=== PATIENT | female | born 1975 | race American Indian/Alaskan Native ===

== ENCOUNTER 2016-11-13 08:55 | Emergency (ER) | payer BC ==
[2016-11-13 09:28] VITALS: BP 136/97
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
== END 2016-11-13 13:00 | disposition home or self-care (01) ==
LOC: EEVIPCON 08:55 → ED 08:55
DX: T62.94XA Toxic effect of unspecified noxious substance eaten as food, undetermined, initial encounter (principal); I10 Essential (primary) hypertension; Y92.89 Other specified places as the place of occurrence of the external cause
CPT/HCPCS: 99282

== ENCOUNTER 2017-03-11 15:00 | Emergency (ER) | payer BC ==
[2017-03-11 15:20] VITALS: BP 155/84
== END 2017-03-11 18:27 | disposition home or self-care (01) ==
LOC: ED 15:00
DX: J03.90 Acute tonsillitis, unspecified (principal); J02.9 Acute pharyngitis, unspecified; I10 Essential (primary) hypertension
CPT/HCPCS: 99282

== ENCOUNTER 2017-06-23 14:00 | Outpatient (CLI) | payer BC ==
--- NOTE | 2017-06-23 15:02 | Mammography Report ---
The patient had this exam on the date indicated above. It was indicated to us that previous films should be available that would be helpful in providing optimal evaluation with regards to the current study. A final report will be issued, pending receipt of the prior study. CAD was utilized.
== END 2017-06-23 14:01 | disposition home or self-care (01) ==
LOC: MAMMO 14:00
PROVIDERS: ATTEND Hospitalist
DX: Z12.31 Encounter for screening mammogram for malignant neoplasm of breast (principal); I10 Essential (primary) hypertension
CPT/HCPCS: 77067; G0202

== ENCOUNTER 2017-07-20 07:11 | Emergency (ER) | payer BC ==
[2017-07-20 07:47] VITALS: BP 153/94
[2017-07-20] MEDS ORDERED: BOOSTRIX IM ONE (08:14)
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
[2017-07-20] MEDS ORDERED: POLYSPORIN TP ONE (08:30)
== END 2017-07-20 09:12 | disposition home or self-care (01) ==
LOC: ED 07:11
DX: S61.215A Laceration without foreign body of left ring finger without damage to nail, initial encounter (principal); I10 Essential (primary) hypertension; W26.8XXA Contact with other sharp object(s), not elsewhere classified, initial encounter; Y93.89 Activity, other specified; Y92.89 Other specified places as the place of occurrence of the external cause; Y99.8 Other external cause status
CPT/HCPCS: 90471; 90715

== ENCOUNTER 2017-10-26 13:52 | Outpatient (CLI) | payer BC ==
--- NOTE | 2017-10-26 16:23 | Mammography Report ---
LEFT DIGITAL DIAGNOSTIC MAMMOGRAM and LEFT BREAST ULTRASOUND: 10/26/17 13:52:00 CLINICAL: Recalled for asymmetry. COMPARISON:06/23/17 screening FINDINGS: ML and spot compression CC views were performed and demonstrate partial effacement of asymmetry and architectural distortion in the inner breast. The lateral view is negative. Ultrasound of the left breast (including all four quadrants and the retroareolar area) was performed and demonstrated no mass or shadowing to correlate with the mammographic finding. A cyst at 1 o'clock 8 cm from the nipple measures 7 x 2 x 8 mm. A complex cyst at 3 o'clock 8 cm from the nipple measures 13 x 4 x 11 mm. Skin thickening and a tiny sebaceous cyst at 4 o'clock 5 cm from the nipple measuring 4 x 5 x 12 mm. IMPRESSION: Probably benign asymmetry architectural distortion in the inner left breast with no ultrasound correlate and no corresponding finding on lateral or MLO views. A 12 mm benign sebaceous cyst at 6 o'clock 7 cm from the nipple. BI-RADS CATEGORY: 3 - - Probably Benign RECOMMENDATION: Six month followup left mammogram and left breast ultrasound is needed. ACR BI-RADS MAMMOGRAPHIC CODES: 0 = Needs additional imaging evaluation; 1 = Negative; 2 = Benign; 3 = Probably benign; 4 = Suspicious; 5 = Malignant; 6 = Known biopsy-proven malignancy COMMENT: 1. Dense breast tissue, i.e., adenosis, fibrocystic changes, etc., may obscure an underlying neoplasm. 2. Approximately 10% of cancers are not detected with mammography. 3. A negative mammography report should not delay biopsy if a clinically suspicious mass is present. COMMENT: Patient follow-up letters are generated via our [employer] application.
== END 2017-10-26 13:53 | disposition home or self-care (01) ==
LOC: MAMMO 13:52
PROVIDERS: ATTEND Hospitalist
DX: N60.82 Other benign mammary dysplasias of left breast (principal); I10 Essential (primary) hypertension

== ENCOUNTER 2018-02-02 13:17 | Outpatient (CLI) | payer BC ==
--- NOTE | 2018-02-02 13:39 | Mammography Report ---
Left mammogram: Short-term followup for asymmetric nodule. Comparison to prior exams dating back to May 2017 shows no significant change. The nodule is only clearly identified in the CC projection. Benign ultrasound in October 2017. Impression: Stable exam. Recommendation: Reevaluated during annual mammography in 6 months. BI-RADS CATEGORY: 3 = Probably benign ACR BI-RADS MAMMOGRAPHIC CODES: 0 = Needs additional imaging evaluation; 1 = Negative; 2 = Benign; 3 = Probably benign; 4 = Suspicious; 5 = Malignant; 6 = Known biopsy-proven malignancy COMMENT: 1. Dense breast tissue, i.e., adenosis, fibrocystic changes, etc., may obscure an underlying neoplasm. 2. Approximately 10% of cancers are not detected with mammography. 3. A negative mammography report should not delay biopsy if a clinically suspicious mass is present.
== END 2018-02-02 13:18 | disposition home or self-care (01) ==
LOC: MAMMO 13:17
PROVIDERS: ATTEND Hospitalist
DX: N63.20 Unspecified lump in the left breast, unspecified quadrant (principal); R92.8 Other abnormal and inconclusive findings on diagnostic imaging of breast

== ENCOUNTER 2018-03-29 08:02 | Outpatient (CLI) | payer BC | END 2018-03-29 08:03 | disposition home or self-care (01) | LOC: VAS 08:02 | PROVIDERS: ATTEND Podiatrist Foot & Ankle Surgery | DX: M79.662 Pain in left lower leg (principal); M79.89 Other specified soft tissue disorders ==

== ENCOUNTER 2018-03-31 13:29 | Outpatient (CLI) | payer BC ==
--- NOTE | 2018-03-31 14:13 | XRay Report ---
BILATERAL TIBIA/FIBULA: History: Enthesopathy unspecified Normal bone mineralization. No abnormal osseous findings or joint pathology is appreciated. The soft tissues are unremarkable. IMPRESSION: Unremarkable bilateral tibia/fibula.
== END 2018-03-31 13:30 | disposition home or self-care (01) ==
LOC: XRAY 13:29
PROVIDERS: ATTEND Podiatrist Foot & Ankle Surgery
DX: M77.9 Enthesopathy, unspecified (principal); I10 Essential (primary) hypertension

== ENCOUNTER 2018-12-19 19:33 | Emergency (ER) | payer BC ==
--- NOTE | 2018-12-19 20:05 | Emergency Department Report ---
Blank Doc - Documentation Documentation: This is a 43-year-old female that presents with right tib-fib pain and right a nkle pain. Stated that trays fell at work. This initial assessment diagnostic orders/clinical plan/treatment(s) is/are subject to change based on patient's health status, clinical progression and re- assessment by fellow clinical providers in the ED. Further treatment and workup at subsequent clinical providers discretion. Patient/guardians urged not to elope from ED s their condition may be serious if not clinically assessed and managed. Initial orders include: 1-Patient sent to [facility] for further evaluation and treatment 2- xrays
[2018-12-19 20:06] VITALS: BP 117/72
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
--- NOTE | 2018-12-19 22:51 | XRay Report ---
FINAL REPORT EXAM: XR ANKLE 2V RT HISTORY: pain TECHNIQUE: Two views of the right ankle PRIORS: None. FINDINGS: The bones are normally aligned and mineralized. The joint spaces are well-preserved. There is no evid ence of acute fracture. The soft tissues are unremarkable. There is a plantar calcaneal spur. IMPRESSION: No evidence of acute fracture or subluxation. Plantar calcaneal spur
--- NOTE | 2018-12-19 22:52 | XRay Report ---
FINAL REPORT EXAM: XR TIBIA FIBULA 2V RT HISTORY: pain TECHNIQUE: AP and lateral views of the right tibia fibula PRIORS: None. FINDINGS: The bones are normally aligned and mineralized. There is no evidence of fracture or subluxation. The soft tissues are unremarkable. There is mild narrowing of the patellofemoral joint and patellofemoral osteophyte formation. IMPRESSION: No evidence of acute injury. Osteoarthrosis of the patellofemoral joint
== END 2018-12-20 00:30 | disposition home or self-care (01) ==
LOC: ED 19:33
DX: S90.511A Abrasion, right ankle, initial encounter (principal); I10 Essential (primary) hypertension; W20.8XXA Other cause of strike by thrown, projected or falling object, initial encounter; Y93.89 Activity, other specified; Y92.89 Other specified places as the place of occurrence of the external cause; Y99.8 Other external cause status

== ENCOUNTER 2019-04-28 11:49 | Emergency (ER) | payer BC ==
--- NOTE | 2019-04-28 12:24 | Emergency Department Report ---
Blank Doc - Documentation Documentation: 2 days of left neck pain that is swoolen today with pain behind ears. No fever or chills. Denies sore throat or earache I spoke with Dr avila. Ct scan ordered with iv contrast Positive mastoid bone TTP ,left with Left neck swelling Pt to be evaluated by provider
--- NOTE | 2019-04-28 13:48 | Emergency Department Report ---
HPI - General Chief Complaint: Skin/Abscess/Foreign Body Time Seen by Provider: 04/28/19 12:24 - HPI HPI: 44-year-old -[place] female presents to the emergency department with complaint of some pain and swelling behind her left ear and to the left lower portion of her neck that is been there for the past few days. She has a past medical history of hypertension. She denies any inner ear pain, decreased hearing, fever. She has not taken anything for her symptoms prior to presentation today. No recent travel or sick contacts at home. ED Past Medical Hx - Past Medical History Hx Hypertension: Yes Additional medical history: Thyroid problems - Surgical History Additional Surgical History: eye surgery as an - Social History Smoking Status: Never Smoker Substance Use Type: None - Medications Home Medications: Home Medications Medication Instructions Recorded Confirmed Last Taken Type Naproxen [Naprosyn] 500 mg PO BID #14 tablet 09/29/13 Unknown Rx Hydrocodone Bit/Acetaminophen 1 each PO Q8H PRN #10 tablet 10/02/13 Unknown Rx [Lortab 7.5-500 mg] Amoxicillin [Trimox CAP] 500 mg PO Q8H #30 capsule 09/20/15 Unknown Rx Lisinopril [Zestril TAB] 10 mg PO QDAY #30 tablet 09/20/15 Unknown Rx Loratadine [Claritin] 10 mg PO DAILY #30 tablet 09/20/15 Unknown Rx Prednisone [predniSONE 10 mg 10 mg PO .TAPER #1 tab.ds.pk 09/20/15 Unknown Rx (6-Day Pack, 21 Tabs)] Promethazine /Codeine 5 ml PO Q6H PRN #150 udc 09/20/15 Unknown Rx [Phenergan/Codeine 6.25-10 mg/5 ml] Sulfamethoxazole/Trimethoprim 1 each PO BID #20 tablet 09/20/15 Unknown Rx [Bactrim DS TAB] diphenhydrAMINE [Benadryl CAP] 50 mg PO Q8H PRN #15 capsule 09/29/15 Unknown Rx Azelastine 0.1% (Nf) [Astelin (Nf)] 137 mcg NS BID PRN #1 bottle 09/16/16 Unknown Rx Fluticasone [Flonase] 2 spray NS QDAY #1 bottle 09/16/16 Unknown Rx Ibuprofen [Motrin] 400 mg PO Q8H PRN #15 tablet 09/16/16 Unknown Rx Ofloxacin [Ocuflox 0.3%] 10 ml OP BID #1 bottle 09/16/16 Unknown Rx Amoxicillin/K Clav Tab [Augmentin 1 tab PO Q12HR 10 Days tab 03/11/17 Unknown Rx 875 mg] cephALEXin [Keflex] 250 mg PO Q6HR #28 capsule 07/20/17 Unknown Rx Ibuprofen [Motrin 600 MG tab] 600 mg PO Q8H PRN #30 tablet 12/20/18 Unknown Rx Ibuprofen [Motrin 600 MG tab] 600 mg PO Q8H PRN #30 tablet 12/20/18 Unknown Rx ED Review of Systems ROS: Stated complaint: BOIL Other details as noted in HPI Comment: All other systems reviewed and negative Constitutional: denies: chills, fever Eyes: denies: eye pain, vision change ENT: denies: throat pain, dental pain Respiratory: denies: cough, shortness of breath Cardiovascular: denies: chest pain, palpitations Gastrointestinal: denies: abdominal pain, vomiting Genitourinary: denies: dysuria, frequency Musculoskeletal: denies: back pain, arthralgia Skin: other (painful swelling behind left ear and lower neck) Neurological: denies: headache, weakness Physical Exam - Physical Exam Vital Signs: Vital Signs 04/28/19 12:22 Temperature 98.5 F Pulse Rate 96 H Respiratory 22 Rate Blood Pressure 124/86 O2 Sat by Pulse 97 Oximetry Physical Exam: GENERAL: The patient is well-developed well-nourished. HENT: Normocephalic. Atraumatic. Patient has moist mucous membranes. EYES: Extraocular motions are intact. Pupils equal reactive to light bilaterally. NECK: Supple. Trachea is midline. CHEST/LUNGS: Clear to auscultation. There is no respiratory distress noted. HEART/CARDIOVASCULAR: Regular. There is no tachycardia. There is no murmur. ABDOMEN: There is no abdominal distention. SKIN: There is a small pea-sized, tender and mobile, area of swelling to the left lateral inferior neck that appears consistent with a lymph node. There is another similar node or lesion behind the left ear on the mastoid. NEURO: The patient is awake, alert, and oriented. The patient is cooperative. The patient has no focal neurologic deficits. The patient has normal speech. MUSCULOSKELETAL: There is no tenderness or deformity. There is no limitation range of motion. There is no evidence of acute injury. ED Course Vital Signs 04/28/19 12:22 Temperature 98.5 F Pulse Rate 96 H Respiratory 22 Rate Blood Pressure 124/86 O2 Sat by Pulse 97 Oximetry ED Medical Decision Making - Lab Data Result diagrams: 04/28/19 13:10 04/28/19 13:10 - Radiology Data Radiology results: report reviewed CT facial bones without contrast INDICATION : Left facial pain for one day. TECHNIQUE: Axial imaging performed through the face with reconstructed images also reviewed. All CT scans at this location are performed using CT dose reduction for ALARA by means of automated exposure control. COMPARISON: None FINDINGS: Normal bone mineralization. The mandible, zygomas, sinuses and orbital cavities are intact. No evidence for fracture or bony destruction. There is mild deviation of the septum to the left side. Visualized brain and skull base are within normal limits. Facial soft tissues are unremarkable. IMPRESSION: No acute abnormality. CT neck with contrast HISTORY: Boil on left side of neck behind left ear for 2 days, headache, left facial pain today. TECHNIQUE: Helical CT imaging following IV contrast. Sagittal and coronal reformatted images. All CT scans at this location are performed using CT dose reduction for ALARA by means of automated exposure control. FINDINGS: Structures of the upper aerodigestive tract are patent and within normal limits. The vascular structures are normal. Normal thyroid gland. Skull base structures are intact. There may be minimal nonspecific soft tissue inflammation behind the left ear. No abscess or soft tissue gas. There are a few scattered reactive lymph nodes in the posterior triangle of the left neck. The bony structures are intact. The lung apices are clear. IMPRESSION: Mild soft tissue inflammation behind the left ear. Reactive left cervical lymph nodes. No evidence for abscess or necrotic lymph nodes. - Medical Decision Making This patient presents to the emergency department with complaint of painful swollen areas to the left side of the face and neck. One is over the mastoid bone and the other is to the left lateral lower neck. Labs have been unremarkable. Vital signs stable. These areas are tender but mobile. It appears most consistent with lymphadenopathy present given the patient's discomfort over the mastoid bone a CT scan was done to look into mastoiditis. However CT scans confirm lymphadenopathy. Patient will follow-up with her primary care physician and return to the emergency Department with any worsening of her symptoms or any acute distress. - Differential Diagnosis lymphadenopathy, mastoiditis, malignancy Critical Care Time: No Critical care attestation.: If time is entered above; I have spent that time in minutes in the direct care of this critically ill patient, excluding procedure time. ED Disposition Clinical Impression: Lymphadenopathy of head and neck, Lymph nodes enlarged Disposition: TO HOME OR SELFCARE Is pt being admited?: No Condition: Stable Instructions: Lymphadenopathy (ED) Additional Instructions: Please follow-up with your primary care physician in the next few days. Return to the emergency Department with any worsening of your symptoms or any acute distress. Referrals: Primary Care Provider, Your [Other] - 2-3 Days Time of Disposition: 16:45
[2019-04-28 13:49] LABS: Basophils % (Auto) 0.5 % (0.0-1.8); Eosinophils # (Auto) 0.1 K/mm3 (0.0-0.4); Hemoglobin 12.2 gm/dl (10.1-14.3); Lymphocytes # (Auto) 1.3 K/mm3 (1.2-5.4); Lymphocytes % (Auto) 20.2 % (13.4-35.0); Mean Corpuscular HGB Conc 33 % (30-34); Mean Corpuscular Volume 81 fl (79-97); Monocytes # (Auto) 0.7 K/mm3 (0.0-0.8); Monocytes % (Auto) 11.1 % (0.0-7.3); Platelet Count 283 K/mm3 (140-440); Red Blood Count 4.55 M/mm3 (3.65-5.03)
[2019-04-28 14:10] LABS: BUN/Creatinine Ratio 17; Blood Urea Nitrogen 10 mg/dL (7-17); Calcium 9.2 mg/dL (8.4-10.2); Hemolysis Index 5
--- NOTE | 2019-04-28 16:29 | Cat Scan Report ---
CT facial bones without contrast INDICATION : Left facial pain for one day. TECHNIQUE: Axial imaging performed through the face with reconstructed images also reviewed. All CT scans at this location are performed using CT dose reduction for ALARA by means of automated exposur e control. COMPARISON: None FINDINGS: Normal bone mineralization. The mandible, zygomas, sinuses and orbital cavities are intact . No evidence for fracture or bony destruction. There is mild deviation of the septum to the left rufus e. Visualized brain and skull base are within normal limits. Facial soft tissues are unremarkable. IMPRESSION: No acute abnormality. Signer Name: Kenney Candelaria Jr, MD Signed: 04/28/2019 4:24 PM Workstation Name: [id number]
--- NOTE | 2019-04-28 16:33 | Cat Scan Report ---
CT neck with contrast HISTORY: Boil on left side of neck behind left ear for 2 days, headache, left facial pain today. TECHNIQUE: Helical CT imaging following IV contrast. Sagittal and coronal reformatted images. All CT scans at this location are performed using CT dose reduction for ALARA by means of automated exposure control. FINDINGS: Structures of the upper aerodigestive tract are patent and within normal limits. The vascular structu res are normal. Normal thyroid gland. Skull base structures are intact. There may be minimal nonspecific soft tissue inflammation behind the left ear. No abscess or soft tis ally gas. There are a few scattered reactive lymph nodes in the posterior triangle of the left neck. T he bony structures are intact. The lung apices are clear. IMPRESSION: Mild soft tissue inflammation behind the left ear. Reactive left cervical lymph nodes. No evidence fo r abscess or necrotic lymph nodes. Signer Name: Kenney Candelaria Jr, MD Signed: 04/28/2019 4:28 PM Workstation Name: [id number]
[2019-04-28 16:56] VITALS: BP 123/82
== END 2019-04-28 16:54 | disposition home or self-care (01) ==
LOC: ED 11:49
DX: R59.0 Localized enlarged lymph nodes (principal); R59.9 Enlarged lymph nodes, unspecified; I10 Essential (primary) hypertension; Z98.890 Other specified postprocedural states
CPT/HCPCS: 36415; 70486; 70491; 80048; 84703; 85025; 99284; Q9967

== ENCOUNTER 2019-09-08 12:57 | Emergency (ER) | payer SELFPAY ==
[2019-09-08 15:34] VITALS: BP 152/100
--- NOTE | 2019-09-08 16:11 | Event Note ---
ED Screening Note Date of service: 09/08/19 Time: 16:06 ED Screening Note: This initial assessment/diagnostic orders/clinical plan/treatment(s) is/are subject to change based on patients health status, clinical progression and re- assessment by fellow clinical providers in the ED. Further treatment and workup at subsequent clinical providers discretion. Patient/guardian urged not to elope from the ED as their condition may be serious if not clinically assessed and managed. Initial orders include:
--- NOTE | 2019-09-08 16:15 | Emergency Department Report ---
Chief Complaint: Neck Pain/Injury Stated Complaint: NECK PAIN Time Seen by Provider: 09/08/19 16:11 - HPI History of Present Illness: 44 y o female presents with bilateral neck pain x 1 week presents with pain pt was seen last week by pcp and given amox treating an infection of skin she denies any trauma or injuries she denies fever,chills n/v - ROS Review of Systems: as noted in HPI - Exam Vital Signs: Vital Signs 09/08/19 15:33 Temperature 98.4 F Pulse Rate 85 Respiratory 18 Rate Blood Pressure 152/100 O2 Sat by Pulse 100 Oximetry Physical Exam: GEN: AAO X 3, ambulatory with no neurological deficit NECK: non tender topalpation, no midline tenderness and no nuccal rigidity MSE screening note: Focused history and physical exam performed. Due to findings the following was ordered: ED Medical Decision Making - Medical Decision Making This 44-year-old female presented with bilateral neck muscle spasm and pain. Discussed with this patient and because medical emergency patient will be sent out with prescriptions and to follow up with her primary care physician. I did discuss the patient denies symptoms worsen or new symptoms arise to return to ED immediately. Otherwise patient had no neurological deficit, vital signs are normal and she is to follow-up ED Disposition for MSE Clinical Impression: Neck muscle spasm Disposition: Z-07 MED SCREENING EXAM-LEFT Is pt being admited?: No Does the pt Need Aspirin: No Condition: Stable Instructions: Trigger Point Pain (ED), Musculoskeletal Pain (ED) Additional Instructions: Follow up with your pcp within 1 week take meds as prescribed Prescriptions: Cyclobenzaprine [Flexeril] 10 mg PO QHS PRN #20 tablet PRN Reason: Muscle Spasm Ibuprofen [Motrin 800 MG tab] 800 mg PO Q8HR PRN #30 tablet PRN Reason: Pain Referrals: [facility] [Outside] - 3-5 Days [facility] [Outside] - 3-5 Days Forms: Accompanied Note, Work/School Release Form(ED) Time of Disposition: 16:17
== END 2019-09-08 17:03 | disposition left against medical advice (07) ==
LOC: ED 12:57
DX: M62.838 Other muscle spasm (principal)
CPT/HCPCS: 99282

== ENCOUNTER 2020-07-08 12:00 | Outpatient (CLI) | payer BC ==
--- NOTE | 2020-07-08 18:26 | Mammography Report ---
DIGITAL SCREENING MAMMOGRAM WITH CAD, 07/08/2020 INDICATION: Routine screening mammography. TECHNIQUE: Digital bilateral 2D mammography was obtained in the craniocaudal and mediolateral obliq ue projections. This examination was interpreted with the benefit of Computer-Aided Detection analysi s. COMPARISON: 06/23/2017 FINDINGS: Breast Density: There are scattered areas of fibroglandular density. There is no evidence of dominant mass, suspicious calcifications or architectural distortion in eithe r breast. No interval change. IMPRESSION: Follow up recommendation: Routine yearly BI-RADS Category 1: Negative. A "normal" or negative report should not discourage follow up or biopsy of a clinically significant f inding. A written summary of these findings will be mailed to the patient. The patient will be entered into a mammography reporting system which will generate a reminder letter for the patient's next appointmen t at the appropriate interval. The [employer] recommends yearly mammograms starting at age 40 and continuing as l momo as a woman is in good health. Breast MRI is recommended for women with an approximate 20-25% or greater lifetime risk of breast cancer, including women with a strong family history of breast or ova george cancer or who have been treated for Hodgkin's disease. Signer Name: Baylee Mack MD Signed: 07/08/2020 6:22 PM Workstation Name: [email or web address]
== END 2020-07-08 12:01 | disposition home or self-care (01) ==
LOC: MAMMO 12:00
PROVIDERS: ATTEND Nurse Practitioner Acute Care
DX: Z12.31 Encounter for screening mammogram for malignant neoplasm of breast (principal)
CPT/HCPCS: 77067

== ENCOUNTER 2020-11-13 15:31 | Emergency (ER) | payer BC ==
[2020-11-13 15:36] VITALS: BP 144/90
--- NOTE | 2020-11-13 15:50 | Emergency Department Report ---
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 2CM LAC OVER THE RIGHT 1ST DIGIT PROX KNUCKLE. FULL ROM. TDAP UTD ED Review of Systems ROS: Stated complaint: FINGER LACERATION Other details as noted in HPI Comment: All other systems reviewed and negative ED Past Medical Hx - Past Medical History Previous Medical History?: Yes Hx Hypertension: Yes Additional medical history: Thyroid problems - Surgical History Past Surgical History?: Yes Additional Surgical History: eye surgery as an infant - Family History Family history: no significant - Social History Smoking Status: Never Smoker Substance Use Type: None - Medications Home Medications: Home Medications Medication Instructions Recorded Confirmed Last Taken Type Naproxen [Naprosyn] 500 mg PO BID #14 tablet 09/29/13 Unknown Rx Hydrocodone Bit/Acetaminophen 1 each PO Q8H PRN #10 tablet 10/02/13 Unknown Rx [Lortab 7.5-500 mg] Amoxicillin [Trimox CAP] 500 mg PO Q8H #30 capsule 09/20/15 Unknown Rx Loratadine (Nf) [Claritin] 10 mg PO DAILY #30 tablet 09/20/15 Unknown Rx Prednisone [predniSONE 10 mg 10 mg PO .TAPER #1 tab.ds.pk 09/20/15 Unknown Rx (6-Day Pack, 21 Tabs)] Promethazine /Codeine 5 ml PO Q6H PRN #150 udc 09/20/15 Unknown Rx [Phenergan/Codeine 6.25-10 mg/5 ml] Sulfamethoxazole/Trimethoprim 1 each PO BID #20 tablet 09/20/15 Unknown Rx [Bactrim DS TAB] lisinopriL [Zestril TAB] 10 mg PO QDAY #30 tablet 09/20/15 Unknown Rx diphenhydrAMINE [Benadryl CAP] 50 mg PO Q8H PRN #15 capsule 09/29/15 Unknown Rx Azelastine 0.1% (Nf) [Astelin (Nf)] 137 mcg NS BID PRN #1 bottle 09/16/16 Unknown Rx Fluticasone [Flonase] 2 spray NS QDAY #1 bottle 09/16/16 Unknown Rx Ibuprofen [Motrin] 400 mg PO Q8H PRN #15 tablet 09/16/16 Unknown Rx Ofloxacin [Ocuflox 0.3%] 10 ml OP BID #1 bottle 09/16/16 Unknown Rx Amoxicillin/K Clav Tab [Augmentin 1 tab PO Q12HR 10 Days tab 03/11/17 Unknown Rx 875 mg] cephALEXin [Keflex] 250 mg PO Q6HR #28 capsule 07/20/17 Unknown Rx Ibuprofen [Motrin 600 MG tab] 600 mg PO Q8H PRN #30 tablet 12/20/18 Unknown Rx Ibuprofen [Motrin 600 MG tab] 600 mg PO Q8H PRN #30 tablet 12/20/18 Unknown Rx Cyclobenzaprine [Flexeril] 10 mg PO QHS PRN #20 tablet 09/08/19 Unknown Rx Ibuprofen [Motrin 800 MG tab] 800 mg PO Q8HR PRN #30 tablet 09/08/19 Unknown Rx Laceration Physical Exam - Exam General: Vital signs noted. No distress. Alert and acting appropriately. Laceration Location: Upper Extremity Laceration Exam: Yes Normal Distal CMS, No Foreign Body, No Exposed Tendon, Vessel, or Nerve, No Tendon Injury ED Course Vital Signs 11/13/20 15:33 Temperature 97 F L Pulse Rate 102 H Respiratory 18 Rate Blood Pressure 144/90 O2 Sat by Pulse 100 Oximetry - Laceration /Wound Repair RHAND Wound Location: upper extremity Irrigated w/ Saline (ccs): 2 Betadine Prep?: Yes Anesthesia: 1% Lidocaine Volume Anesthetic (ccs): 2 Wound Debrided: minimal Wound Repaired With: sutures Suture Size/Type: 3:0, nylon Number of Sutures: 2 Layer Closure?: No Sterile Dressing Applied?: Yes Progress: TOLERATED WELL ED Medical Decision Making - Medical Decision Making LAC REPAIR TOLERATED WELL FULL ROM NEUROVASC INTACT DC HOME WITH DC POC INCLUDING FOLLOW UP AND WOUND CARE PT VERBALIZES UNDERSTANDING Vital Signs 11/13/20 15:33 Temperature 97 F L Pulse Rate 102 H Respiratory 18 Rate Blood Pressure 144/90 O2 Sat by Pulse 100 Oximetry - Differential Diagnosis SIMPLE LAC Critical care attestation.: If time is entered above; I have spent that time in minutes in the direct care of this critically ill patient, excluding procedure time. ED Disposition Clinical Impression: Laceration Disposition: DC-01 TO HOME OR SELFCARE Is pt being admited?: No Does the pt Need Aspirin: No Condition: Stable Instructions: Laceration Care, Adult Additional Instructions: MOTRIN OR TYLENOL FOR PAIN LEAVE BANDAGE ON TODAY AND REMOVE IN AM WASH WITH SOAP AND WATER AND REAPPLY DRESSING DO NOT USE OINTMENTS AT THIS TIME KEEP HAND IN NEUTRAL POSITION GIVEN THE LAC IS OVER A KNUCKLE AND IT WILL BREAK OPEN RETURN TO ER NEXT WEDNESDAY TO HAVE SUTURES REMOVED Referrals: MARA CERON MD [Staff Physician] - 3-5 Days Forms: Work/School Release Form(ED) Time of Disposition: 15:47
== END 2020-11-13 15:50 | disposition home or self-care (01) ==
LOC: ED 15:31
DX: S61.411A Laceration without foreign body of right hand, initial encounter (principal); I10 Essential (primary) hypertension; Z98.890 Other specified postprocedural states; Z79.899 Other long term (current) drug therapy; W45.8XXA Other foreign body or object entering through skin, initial encounter; Y93.89 Activity, other specified; Y92.89 Other specified places as the place of occurrence of the external cause; Y99.8 Other external cause status
CPT/HCPCS: 99282

== ENCOUNTER 2020-11-19 12:09 | Emergency (ER) | payer BC ==
--- NOTE | 2020-11-19 12:14 | Emergency Department Report ---
Suture/Staple Removal - HPI Stated Complaint: STITCHES REMOVED Time Seen by Provider: 11/19/20 12:10 When Sutures or [place] Placed: 5-7 Days Ago Wound Location: r hand ED Review of Systems ROS: Stated complaint: STITCHES REMOVED Other details as noted in HPI Comment: All other systems reviewed and negative ED Past Medical Hx - Past Medical History Previous Medical History?: Yes Hx Hypertension: Yes Additional medical history: Thyroid problems - Surgical History Past Surgical History?: Yes Additional Surgical History: eye surgery as an infant - Family History Family history: no significant - Social History Smoking Status: Never Smoker Substance Use Type: None - Medications Home Medications: Home Medications Medication Instructions Recorded Confirmed Last Taken Type Naproxen [Naprosyn] 500 mg PO BID #14 tablet 09/29/13 Unknown Rx Hydrocodone Bit/Acetaminophen 1 each PO Q8H PRN #10 tablet 10/02/13 Unknown Rx [Lortab 7.5-500 mg] Amoxicillin [Trimox CAP] 500 mg PO Q8H #30 capsule 09/20/15 Unknown Rx Loratadine (Nf) [Claritin] 10 mg PO DAILY #30 tablet 09/20/15 Unknown Rx Prednisone [predniSONE 10 mg 10 mg PO .TAPER #1 tab.ds.pk 09/20/15 Unknown Rx (6-Day Pack, 21 Tabs)] Promethazine /Codeine 5 ml PO Q6H PRN #150 udc 09/20/15 Unknown Rx [Phenergan/Codeine 6.25-10 mg/5 ml] Sulfamethoxazole/Trimethoprim 1 each PO BID #20 tablet 09/20/15 Unknown Rx [Bactrim DS TAB] lisinopriL [Zestril TAB] 10 mg PO QDAY #30 tablet 09/20/15 Unknown Rx diphenhydrAMINE [Benadryl CAP] 50 mg PO Q8H PRN #15 capsule 09/29/15 Unknown Rx Azelastine 0.1% (Nf) [Astelin (Nf)] 137 mcg NS BID PRN #1 bottle 09/16/16 Unknown Rx Fluticasone [Flonase] 2 spray NS QDAY #1 bottle 09/16/16 Unknown Rx Ibuprofen [Motrin] 400 mg PO Q8H PRN #15 tablet 09/16/16 Unknown Rx Ofloxacin [Ocuflox 0.3%] 10 ml OP BID #1 bottle 09/16/16 Unknown Rx Amoxicillin/K Clav Tab [Augmentin 1 tab PO Q12HR 10 Days tab 03/11/17 Unknown Rx 875 mg] cephALEXin [Keflex] 250 mg PO Q6HR #28 capsule 07/20/17 Unknown Rx Ibuprofen [Motrin 600 MG tab] 600 mg PO Q8H PRN #30 tablet 12/20/18 Unknown Rx Ibuprofen [Motrin 600 MG tab] 600 mg PO Q8H PRN #30 tablet 12/20/18 Unknown Rx Cyclobenzaprine [Flexeril] 10 mg PO QHS PRN #20 tablet 09/08/19 Unknown Rx Ibuprofen [Motrin 800 MG tab] 800 mg PO Q8HR PRN #30 tablet 09/08/19 Unknown Rx Suture Removal Exam - Exam General: Vital signs noted. No distress. Alert and acting appropriately. Wound: No Pathologic Erythema, No Tenderness, No Drainage, No Pus, No Wound Dehiscence Other Systems: All other systems reviewed and are unremarkable. ED Recheck MDM - Core Measures Measure Exclusions: not indicated - Differential Diagnosis Suture/Staple Removal - Medical Decision Making sutures removed with difficulty tolerated well 2 sutures full rom n/v intact rapid cap refill Critical care attestation.: If time is entered above; I have spent that time in minutes in the direct care of this critically ill patient, excluding procedure time. ED Disposition Clinical Impression: Visit for suture removal Disposition: -01 TO HOME OR SELFCARE Is pt being admited?: No Does the pt Need Aspirin: No Condition: Stable Instructions: Wound Closure Removal, Care After Referrals: PRIMARY MD TISHA [Primary Care Provider] - 3-5 Days MARA CERON MD [Staff Physician] - 3-5 Days Forms: Work/School Release Form(ED) Time of Disposition: 12:15
[2020-11-19 12:26] VITALS: BP 147/99
== END 2020-11-19 12:26 | disposition home or self-care (01) ==
LOC: ED 12:09
DX: I10 Essential (primary) hypertension (principal); Z48.02 Encounter for removal of sutures; Z98.890 Other specified postprocedural states; Z79.2 Long term (current) use of antibiotics; Z79.899 Other long term (current) drug therapy

== ENCOUNTER 2021-01-17 11:11 | Outpatient (CLI) | payer BC ==
--- NOTE | 2021-01-17 13:22 | Vascular Lab Report ---
DUPLEX DOPPLER LOWER EXTREMITY VEINS, RIGHT INDICATION / CLINICAL INFORMATION: PAIN IN LOWER LEG. TECHNIQUE: Duplex doppler imaging was performed through the veins of the right lower extremity using venous comp ression and other maneuvers. COMPARISON: None available. FINDINGS: RIGHT COMMON FEMORAL VEIN: Negative. RIGHT FEMORAL VEIN: Negative. RIGHT POPLITEAL VEIN: Negative. RIGHT CALF VEINS: Negative. ADDITIONAL FINDINGS: None. IMPRESSION: 1. No sonographic evidence for DVT in the right lower extremity. Signer Name: Juarez Schultz MD Signed: 01/17/2021 1:18 PM Workstation Name: [id number]
== END 2021-01-17 11:12 | disposition home or self-care (01) ==
LOC: VAS 11:11
PROVIDERS: ATTEND Clinical Nurse Specialist Adult Health
DX: M79.661 Pain in right lower leg (principal)

== ENCOUNTER 2021-07-16 13:37 | Outpatient (CLI) | payer BC ==
--- NOTE | 2021-07-16 17:30 | Mammography Report ---
DIGITAL SCREENING MAMMOGRAM WITH CAD, 07/16/2021 CLINICAL INFORMATION / INDICATION: Routine screening mammography. TECHNIQUE: Digital bilateral 2D mammography was obtained in the craniocaudal and mediolateral obliqu e projections. This examination was interpreted with the benefit of Computer-Aided Detection analysis . COMPARISON: 07/08/2020 08/22/2018 FINDINGS: Breast Density: There are scattered areas of fibroglandular density. No dominant mass, suspicious calcifications, or architectural distortion in the right breast. There is a new round 3.5 cm mass projecting in the left breast at 6:00 which the patient reports as a boil. Otherwise, no significant interval change. IMPRESSION: No mammographic evidence of malignancy. Please note that the patient has a new superficia l mass in the left breast at 6:00, which she reports as a "boil". Please correlate clinically. Follow up recommendation: Routine yearly BI-RADS Category 2: Benign. A "normal" or negative report should not discourage follow up or biopsy of a clinically significant f inding. A written summary of these findings will be mailed to the patient. The patient will be entered into a mammography reporting system which will generate a reminder letter for the patient's next appointmen t at the appropriate interval. The [employer] recommends yearly mammograms starting at age 40 and continuing as l momo as a woman is in good health. Breast MRI is recommended for women with an approximate 20-25% or greater lifetime risk of breast cancer, including women with a strong family history of breast or ova george cancer or who have been treated for Hodgkin's disease. Signer Name: Baylee Mack MD Signed: 07/16/2021 5:26 PM Workstation Name: [email or web address]
== END 2021-07-16 13:38 | disposition home or self-care (01) ==
LOC: MAMMO 13:37
PROVIDERS: ATTEND Clinical Nurse Specialist Adult Health
DX: Z12.31 Encounter for screening mammogram for malignant neoplasm of breast (principal)
CPT/HCPCS: 77067

== ENCOUNTER 2022-01-08 11:49 | Outpatient (CLI) | payer BC ==
--- NOTE | 2022-01-08 13:21 | XRay Report ---
Right shoulder 3 views INDICATION: Pain FINDINGS: Glenohumeral and AC degenerative change. No acute fracture or dislocation is seen. No soft tissue abnormality. Signer Name: Jabier Richard MD Signed: 01/08/2022 1:17 PM Workstation Name: [id number]
--- NOTE | 2022-01-08 13:27 | Vascular Lab Report ---
DUPLEX DOPPLER LOWER EXTREMITY VEINS, RIGHT INDICATION / CLINICAL INFORMATION: M79.604 PAIN IN RIGHT LEG. TECHNIQUE: Duplex doppler imaging was performed through the veins of the right lower extremity using venous comp ression and other maneuvers. COMPARISON: None available. FINDINGS: RIGHT COMMON FEMORAL VEIN: Negative. RIGHT FEMORAL VEIN: Negative. RIGHT POPLITEAL VEIN: Negative. RIGHT CALF VEINS: Negative. ADDITIONAL FINDINGS: None. IMPRESSION: 1. No sonographic evidence for DVT in the right lower extremity. Signer Name: Jabier Richard MD Signed: 01/08/2022 1:23 PM Workstation Name: [id number]
== END 2022-01-08 11:50 | disposition home or self-care (01) ==
LOC: VAS 11:49
PROVIDERS: ATTEND Clinical Nurse Specialist Adult Health
DX: M19.011 Primary osteoarthritis, right shoulder (principal); M79.604 Pain in right leg